=== PATIENT | female | born 1960 | race Two or more races ===

== ENCOUNTER 2024-04-06 11:09 | Emergency (ER) | payer MEDICAID ==
[~2024-04-06] VITALS: Ht 152.4 cm; Wt 67.8 kg
[2024-04-06 11:48] VITALS: BP 154/76; PULSE 100; TEMP 98.4
[2024-04-06] MEDS: methylPREDNISolone SOD SUCC 125 MG/2 ML VL IM ONE (11:59)
--- NOTE | 2024-04-06 11:59 | ED.PDOC ---
SOB-HPI HPI Comments A 63 YEAR OLD FEMALE PRESENTS TO THE ED WITH COMPLAINT OF ASTHMA EXACERBATION. PATIENT STATES SHE HAS A HISTORY OF ASTHMA AND HAS BEEN EXPERIENCING WHEEZING, COUGH, AND CHEST TIGHTNESS THAT STARTED YESTERDAY. PATIENT REPORTS SHE WENT TO A CLINIC EARLIER TODAY WHERE SHE WAS GIVEN A DECADRON INJECTION, BUT NOTES THERE HAS BEEN NO IMPROVEMENT IN HER SYMPTOMS OF YET. PATIENT DENIES FEVER, CHILLS, CHEST PAIN, ABDOMINAL PAIN, NAUSEA, VOMITING, HEADACHE, OR OTHER COMPLAINTS. NO OTHER SYMPTOMS OR MODIFYING FACTORS AT THIS TIME. PATIENT IS ALERT, ORIENTED X 4, AND HAS STEADY GAIT. Chief Complaint: Asthma Time Seen by MD: 11:20 Reviewed notes: Nurses Notes, Medications, Allergies Information Source: Patient Mode of Arrival: Ambulatory Severity: Mild, Moderate Timing: Days Duration: Since onset, Days Context: Spontaneous Onset PE Risk Factors: Other History of: Asthma Prehospital treatment: None Modifying Factors: Nothing Associated Signs and Symptoms: Wheeze, Cough If cough with SOB: Non-Productive Past Medical History PAST MEDICAL HISTORY: Asthma, DM, HTN Surgical History: Denies all surgeries [employer] History: Denies all [employer] Hx Family History Family History: Reviewed,noncontributory to illness Social History Smoker: Non-Smoker Alcohol: Denies ETOH Use Drugs: Denies Drug Use Lives In: Home Constitutional: denies: chills, diaphoresis, fatigue, fever, malaise, sweats, weakness, others EENTM: denies: blurred vision, double vision, ear bleeding, ear discharge, ear drainage, ear pain, ear ringing, eye pain, eye redness, hearing loss, mouth niurka n, mouth swelling, nasal discharge, nose bleeding, nose congestion, nose pain, photophobia, tearing, throat pain, throat swelling, voice changes, others Respiratory: reports: cough, wheezing, others (CHEST TIGHTNESS); denies: hemoptysis, orthopnea, SOB at rest, shortness of breath, SOB with excertion, stridor Cardiovascular: denies: chest pain, dizzy spells, diaphoresis, Dyspnea on exertion, edema, irregular heart beat, left arm pain, lightheadedness, palpitations, PND, syncope, others Gastrointestinal: denies: abdomen distended, abdominal pain, blood streaked bowels, constipated, diarrhea, dysphagia, difficulty swallowing, hematemesis, melena, nausea, poor appetite, poor fluid intake, rectal bleeding, rectal pain, vomiting, others Genitourinary: denies: abnormal vagina bleeding, burning, dyspareunia, dysuria, flank pain, frequency, hematuria, incontinence, pain, , vagina discharge, urgency, others Neurological: denies: dizziness, fainting, headache, left sided numbness, left sided weakness, numbness, paresthesia, pre-existing deficit, right sided numbness, right sided weakness, seizure, speech problems, tingling, tremors, weakness, others Musculoskeletal: denies: back pain, gout, joint pain, joint swelling, muscle pain, muscle stiffness, neck pain, others Integumetry: denies: bruises, change in color, change in hair/nails, dryness, laceration, lesions, lumps, rash, wounds, others Allergic/Immunocompromised: denies: Difficulty Healing, Frequent Infections, Hives, Itching, others Hematologic/Lymphatic: denies: anemia, blood clots, easy bleeding, easy bruising, swollen glands, others Endocrine: denies: excessive hunger, excessive sweating, excessive thirst, excessive urination, flushing, intolerance to cold, intolerance to heat, unexplained weight gain, unexplained weight loss, others Psychiatric: denies: anxiety, bipolar disorder, depression, hopeless, panic disorder, schizophrenia, sleepless, suicidal, others All Other Systems: Reviewed and Negative Physical Exam General Appearance: Obese HEENT: Normal ENT Inspection, PERRL/EOMI, Pharynx Normal, TMs Normal Neck: Full Range of Motion, Non-Tender, Normal, Normal Inspection Respiratory: Chest Non-Tender, Decreased Breath Sounds, No Accessory Muscle Use, No Respiratory Distress, Wheezing Cardiovascular: No Edema, No JVD, No Murmur, No Gallop, Normal Peripheral Pulses, Regular Rate/Rhythm Breast Exam: Deferred Gastrointestinal: No Organomegaly, Non Tender, No Pulsatile Mass, Normal Bowel Sounds, Soft Genitalia: Deferred Pelvic: Deferred Rectal: Deferred Extremities: No calf tenderness, Normal capillary refill, Normal inspection, Normal range of motion, Non-tender, No pedal edema Musculoskeletal : Apperance: Normal Neurologic: Alert, firesetter II-XII nml as Tested, No Motor Deficits, Normal Affect, Normal Mood, No Sensory Deficits Cerebellar Function: Normal Reflexes: Normal Skin: Dry, Normal Color, Warm Peripheral Pulses: 2+ carotid (R), 2+ carotid (L) Lymphatic: No Adenopathy Was a procedure done? Was a procedure done?: No Differential Dx Differential Diagnosis: Asthma, Bronchitis, Pneumonia, Sinusitis, Allergic Rhinitis, Otitis Media, Pharyngitis, URI X-Ray, Labs, Meds, VS Vital Signs Date Time Temp Pulse Resp B/P (MAP) Pulse Ox O2 Delivery O2 Flow Rate FiO2 04/06/24 12:02 18 96 Room Air* 0 21 04/06/24 11:48 98.4 100 21 154/76 (102) 95 98.4 04/06/24 11:48 100 21 95 Room Air 04/06/24 11:26 17 96 Room Air* 0 21 04/06/24 11:26 98.4 100 21 154/76 (102) 96 Current Medications Medications (Trade) Dose Ordered Sig/Jose Route Start Time Stop Time Status Last Admin Albuterol (Ventolin Medneb) 5 mg ONCE ONCE NEB 04/06/24 12:00 04/06/24 12:01 DC 04/06/24 12:02 Ipratropium [place] (Atrovent Medneb) 1 mg ONCE ONCE NEB 04/06/24 12:00 04/06/24 12:01 DC 04/06/24 12:02 Methylprednisolone Sodium Succinate (Solu Medrol) 125 mg ONCE ONCE IM 04/06/24 12:00 04/06/24 12:01 DC 04/06/24 11:59 CHEST RADIOGRAPH Indication:WHEEZING, HX OF ASTHMA Technique: Single frontal view of the chest was obtained Comparison: None FINDINGS: Lines and Tubes: None Lungs: No focal consolidation. Pleura: No effusion. No pneumothorax. Cardiomediastinal contours: Unremarkable Bones: No acute osseous abnormality. IMPRESSION: 1. No radiographic evidence of acute cardiopulmonary disease. HS:Y ATED BY: SHAYLA DONOVAN DO DICTATED DATE/TIME: 04/06/241225 SIGNED BY: SHAYLA DONOVAN DO SIGNED DATE/TIME: 04/06/241225 CC: X-Ray, Labs, Meds, VS Comment TREATMENT: SOLU-MEDROL 125 MG IM, DUONEB 3 MG INHL Images Reviewed?: Images reviewed and evaluated by me Time of 1ST Reevaluation: 12:41 Reevaluation 1ST: Improved Patient Education/Counseling: Diagnosis, Treatment, Need For Follow Up Family Education/Counseling: Diagnosis, Treatment, Need For Follow Up Medical Screening: No EMC Exist At This Time Departure 1 Departure Time of Disposition: 12:41 Impression: Primary Impression: Acute asthma exacerbation Qualified Codes: J45.901 - Unspecified asthma with (acute) exacerbation Disposition: 01 HOME / SELF CARE / HOMELESS Condition: Stable Additional Instructions: FOLLOW-UP WITH PCP IN 1 TO 2 DAYS. TAKE MEDICATIONS PRESCRIBED. RETURN TO ED FOR ANY NEW OR WORSENING SYMPTOMS. e-Prescriptions Albuterol Sulfate (Ventolin) 2.5 Mg/0.5 Ml Nb 1 VIAL NEB Q6HR, #120 VIAL Prov: VARGHESE AMOS 04/06/24 Methylprednisolone (Medrol Dosepak) 4 Mg Demetrio 4 MG PO UD, #21 TAB UAD Prov: VARGHESE AMOS 04/06/24 Discharged With: Self Critical Care Note Critical Care Time?: No Stability Stability form required: No Heart Score Heart Score: Heart Score Response (Comments) Value History N/A 0 EKG N/A 0 Age N/A 0 Risk Factors N/A 0 Troponin N/A 0 Total 0 I personally scribed for VARGHESE AMOS ([email or web address]) on 04/06/24 at 11:59. Electronically submitted by Aramis Villa ([employer]). I personally scribed for VARGHESE AMOS ([email or web address]) on 04/06/24 at 12:35. Electronically submitted by Aramis Villa ([employer]). VARGHESE AMOS Apr 06, 2024 11:59
[2024-04-06 12:02] VITALS: RESP 18; O2SAT 96
[2024-04-06] MEDS: IPRATROPIUM BROM 0.5 MG/2.5ML INH SOL NEB ONE (12:02)
[2024-04-06] MEDS: ALBUTEROL SULF 2.5 MG/0.5ML(0.5%) NEB SOLN NEB ONE (12:02)
--- NOTE | 2024-04-06 12:28 | DVH ---
CHEST RADIOGRAPH Indication:WHEEZING, HX OF ASTHMA Technique: Single frontal view of the chest was obtained Comparison: None FINDINGS: Lines and Tubes: None Lungs: No focal consolidation. Pleura: No effusion. No pneumothorax. Cardiomediastinal contours: Unremarkable Bones: No acute osseous abnormality. IMPRESSION: 1. No radiographic evidence of acute cardiopulmonary disease. HS:Y
[2024-04-06] MEDS ORDERED: ALB5IS NEB (12:42)
[2024-04-06] MEDS ORDERED: METH4PAK PO (12:42)
== END 2024-04-06 13:02 | disposition home or self-care (01) ==
LOC: ER 11:09
DX: J45.901 Unspecified asthma with (acute) exacerbation (principal); I10 Essential (primary) hypertension; E11.9 Type 2 diabetes mellitus without complications
CPT/HCPCS: 71045; 94640; 96372; 99283; J2919